=== PATIENT | male | born 1990 | race Caucasian/White ===

== ENCOUNTER 2021-06-18 18:38 | Emergency (ER) | payer OTHER ==
[~2021-06-18] VITALS: Ht 167.6 cm; Wt 90.7 kg
--- NOTE | ~2021-06-18 | EMS ---
[facility] [address] [place] [address] EMS Patient Care Report Name: ENOCH RILEY Room #: REG TONA Laughlin#: [id number] Admission: 06/18/21 Attend Phys: Discharge: Date of : 88 Report #: [id number] THIS REPORT FOR: //name// Report Transmitted: 06/18/2021 19:37 EMS Care Summary [place], [place]/[facility] Incident [id number] @ 06/18/2021 17:57 Incident Location [address] [place] [address] Patient ENOCH RONDON Male, 40 Years 1980-10-09 Patient Address [address] [place] [address] Chief Complaint CHEST PAIN Disposition Transported No Lights/Russell Dispatch Reason Unknown Problem/Person Down Transported To [facility] Narrative M41 WAS DISPATCHED FOR AN UNKNOWN PROBLEM. UPON ARRIVAL THE PT FRIENDS WERE IN FRONT OF THE HOUSE TALKING TO PD. PT FRIENDS INFORMED PD AND EMS THAT THE PT HAD BEEN DRINKING FOR THE PAST WEEK AND HAD NOT BEEN EATING "ALMOST NO FOOD" THE PT WAS [place] ISLANDER SPEAKING ONLY AND HIS FRIENDS WERE PRIMARILY [place]LANDER SPEAKING. THE PT CAME OUT OF THE HOUSE WHILE EMS WAS SPEAKING TO HIS FRIENDS AND HE WALKED DIRECTLY TO THE AMBULANCE WILE CLUTCHING HIS CHEST. EMS WENT TO THE AMBULANCE WITH HIM AND PUT HIM ON THE END TRIMMER. THE PT ALLUDED TO HAVING CHEST PAIN AND INITIAL RHYTHM APPEARED TO BE SVT. AT THAT TIME THE PT THREW HIS HEAD BACK AND HIS EYES GOT WIDE AND HE BEGAN TO SHAKE FOR ABOUT FIVE SECONDS. THE PT THEN SUDDENLY SAT UP AND AND TRIED TO GET OFF THE STRETCHER. EMS CONVINCED HIM TO REMAIN SEATED, AT WHICH TIME HE SUDDENLY BECAME VERY CALM. [facility] [address] [place] [address] EMS Patient Care Report Name: ENOCH RILEY Room #: REG TONA Laughlin#: [id number] Admission: 06/18/21 Attend Phys: Discharge: Date of : 88 Report #: [id number] THE PT HEART RATE SIGNIFICANTLY LOWERED. THE PT WAS THEN TRANSPORTED TO THE HOSPITAL AND MONITORED ENROUTE. THE PT WAS TRANSFERRED TO HOSPITAL STAFF WITH A REPORT. EMS RETURNED TO SERVICE. Initial Vitals @18:10P: 160,R: 20,BP: 136/68,Pain: 6/10,GCS: 15,Glucose: 106,SpO2: 98,Revised Trauma: 12,[place] Suspected: false @18:15P: 124,R: 16,BP: 140/88,Pain: 6/10,GCS: 15,SpO2: 99,Revised Trauma: 12,[place] Suspected: false @18:25P: 94,R: 16,BP: 124/88,Pain: 2/10,GCS: 15,SpO2: 99,Revised Trauma: 12,[place] Suspected: false Assessments @18:06MENTAL:SKIN:HEENT:Head/Face: No Abnormalities,Neck/Airway: No Abnormalities,LUNG SOUNDS:General: No Abnormalities,Left Upper: No Abnormalities,Right Upper: No Abnormalities,Left Lower: No Abnormalities,Right Lower: No Abnormalities,ABDOMEN:General: No Abnormalities,Left Upper: No Abnormalities,Right Upper: No Abnormalities,Left Lower: No Abnormalities,Right Lower: No Abnormalities,PELVIS//GI:No Abnormalities,EXTREMITIES:Left Arm: No Abnormalities,Right Arm: No Abnormalities,Left Leg: No Abnormalities,Right Leg: No Abnormalities,PULSE:Radial: 2+ Normal,NEURO:No Abnormalities, Impression Chest Pain / Discomfort Procedures @18:06 ALS Assessment Response: UnchangedSucceeded @18:12 IV Therapy - Saline Lock 10cc (18 ga) Site: Antecubital-Left Response: UnchangedSucceeded @18:10 3-Lead ECG Response: UnchangedSucceeded @18:15 12-Lead ECG Response: UnchangedSucceeded Timeline 17:56,Call Received 17:56,Dispatch Notified 17:57,Dispatched 17:57,En Route 18:05,On Scene 18:06,At Patient 18:06,ALS Assessment,Response: UnchangedSucceeded, 18:10,3-Lead ECG,Response: UnchangedSucceeded, 18:10,BP: 136/68 M,PULSE: 160,RR: 20 R,SPO2: 98 Ox,ETCO2: ,B,PAIN: 6,GCS: 15, 18:12,IV Therapy - Saline Lock 10cc 18 ga Site: Antecubital-Left,Response: UnchangedSucceeded, [facility] [address] [place] [address] EMS Patient Care Report Name: ENOCH RILEY Room #: ROSALIND Laughlin#: [id number] Admission: 06/18/21 Attend Phys: Discharge: Date of : 88 Report #: [id number] 18:15,12-Lead ECG,Response: UnchangedSucceeded, 18:15,BP: 140/88 M,PULSE: 124,RR: 16 R,SPO2: 99 Ox,ETCO2: ,BG: ,PAIN: 6,GCS: 15, 18:20,Depart Scene 18:25,BP: 124/88 M,PULSE: 94,RR: 16 R,SPO2: 99 Ox,ETCO2: ,BG: ,PAIN: 2,GCS: 15, 18:48,At Destination 18:49,Call Closed Disclaimer v1.1 Copyright 2021 [employer] This EMS Care Summary contains data elements from the applicable legal record (which may be displayed differently). It is designed to provide pertinent information for the following purposes: continuity of care, clinical quality, and state data reporting. The complete legal record is available to ED staff and administrators of the receiving hospital in [employer] Patient Tracker. All data is provided "as is."
--- NOTE | ~2021-06-18 | EMS ---
[facility] [address] [place] [address] EMS Patient Care Report Name: ENOCH RILEY Room #: DEP TONA Laughlin#: [id number] Admission: 06/18/21 Attend Phys: Discharge: 06/18/21 Date of : 88 Report #: [id number] THIS REPORT FOR: //name// Report Transmitted: 06/18/2021 20:40 EMS Care Summary [place], [place]/[facility] Incident [id number] @ 06/18/2021 17:57 Incident Location [address] [place] [address] Patient ENOCH RONDON Male, 40 Years 1980-10-09 Patient Address [address] [place] [address] Chief Complaint CHEST PAIN Disposition Transported No Lights/Coleman Dispatch Reason Unknown Problem/Person Down Transported To [facility] Narrative M41 WAS DISPATCHED FOR AN UNKNOWN PROBLEM. UPON ARRIVAL THE PT FRIENDS WERE IN FRONT OF THE HOUSE TALKING TO PD. PT FRIENDS INFORMED PD AND EMS THAT THE PT HAD BEEN DRINKING FOR THE PAST WEEK AND HAD NOT BEEN EATING "ALMOST NO FOOD" THE PT WAS HONDURAN SPEAKING ONLY AND HIS FRIENDS WERE PRIMARILY HONDURAN SPEAKING. THE PT CAME OUT OF THE HOUSE WHILE EMS WAS SPEAKING TO HIS FRIENDS AND HE WALKED DIRECTLY TO THE AMBULANCE WILE CLUTCHING HIS CHEST. EMS WENT TO THE AMBULANCE WITH HIM AND PUT HIM ON THE LEAD DESIGNER. THE PT ALLUDED TO HAVING CHEST PAIN AND INITIAL RHYTHM APPEARED TO BE SVT. AT THAT TIME THE PT THREW HIS HEAD BACK AND HIS EYES GOT WIDE AND HE BEGAN TO SHAKE FOR ABOUT FIVE SECONDS. THE PT THEN SUDDENLY SAT UP AND AND TRIED TO GET OFF THE STRETCHER. EMS CONVINCED HIM TO REMAIN SEATED, AT WHICH TIME HE SUDDENLY BECAME VERY CALM. [facility] [address] [place] [address] EMS Patient Care Report Name: ENOCH RILEY Room #: DEP Truman#: [id number] Admission: 06/18/21 Attend Phys: Discharge: 06/18/21 Date of : 88 Report #: [id number] THE PT HEART RATE SIGNIFICANTLY LOWERED. THE PT WAS THEN TRANSPORTED TO THE HOSPITAL AND MONITORED ENROUTE. THE PT WAS TRANSFERRED TO HOSPITAL STAFF WITH A REPORT. EMS RETURNED TO SERVICE. Initial Vitals @18:10P: 160,R: 20,BP: 136/68,Pain: 6/10,GCS: 15,Glucose: 106,SpO2: 98,Revised Trauma: 12,[place] Suspected: false @18:15P: 124,R: 16,BP: 140/88,Pain: 6/10,GCS: 15,SpO2: 99,Revised Trauma: 12,[place] Suspected: false @18:25P: 94,R: 16,BP: 124/88,Pain: 2/10,GCS: 15,SpO2: 99,Revised Trauma: 12,NM Suspected: false Assessments @18:06MENTAL:SKIN:HEENT:Head/Face: No Abnormalities,Neck/Airway: No Abnormalities,LUNG SOUNDS:General: No Abnormalities,Left Upper: No Abnormalities,Right Upper: No Abnormalities,Left Lower: No Abnormalities,Right Lower: No Abnormalities,ABDOMEN:General: No Abnormalities,Left Upper: No Abnormalities,Right Upper: No Abnormalities,Left Lower: No Abnormalities,Right Lower: No Abnormalities,PELVIS//GI:No Abnormalities,EXTREMITIES:Left Arm: No Abnormalities,Right Arm: No Abnormalities,Left Leg: No Abnormalities,Right Leg: No Abnormalities,PULSE:Radial: 2+ Normal,NEURO:No Abnormalities, Impression Chest Pain / Discomfort Procedures @18:06 ALS Assessment Response: UnchangedSucceeded @18:12 IV Therapy - Saline Lock 10cc (18 ga) Site: Antecubital-Left Response: UnchangedSucceeded @18:10 3-Lead ECG Response: UnchangedSucceeded @18:15 12-Lead ECG Response: UnchangedSucceeded Timeline 17:56,Call Received 17:56,Dispatch Notified 17:57,Dispatched 17:57,En Route 18:05,On Scene 18:06,At Patient 18:06,ALS Assessment,Response: UnchangedSucceeded, 18:10,3-Lead ECG,Response: UnchangedSucceeded, 18:10,BP: 136/68 M,PULSE: 160,RR: 20 R,SPO2: 98 Ox,ETCO2: ,B,PAIN: 6,GCS: 15, 18:12,IV Therapy - Saline Lock 10cc 18 ga Site: Antecubital-Left,Response: UnchangedSucceeded, [facility] [address] [facility] [place] [address] EMS Patient Care Report Name: ENOCH RILEY Room #: DEP TONA Laughlin#: [id number] Admission: 06/18/21 Attend Phys: Discharge: 06/18/21 Date of : 88 Report #: [id number] 18:15,12-Lead ECG,Response: UnchangedSucceeded, 18:15,BP: 140/88 M,PULSE: 124,RR: 16 R,SPO2: 99 Ox,ETCO2: ,BG: ,PAIN: 6,GCS: 15, 18:20,Depart Scene 18:25,BP: 124/88 M,PULSE: 94,RR: 16 R,SPO2: 99 Ox,ETCO2: ,BG: ,PAIN: 2,GCS: 15, 18:48,At Destination 18:49,Call Closed Disclaimer v1.1 Copyright 2021 [employer] This EMS Care Summary contains data elements from the applicable legal record (which may be displayed differently). It is designed to provide pertinent information for the following purposes: continuity of care, clinical quality, and state data reporting. The complete legal record is available to ED staff and administrators of the receiving hospital in [employer] Patient Tracker. All data is provided "as is."
[2021-06-18 18:56] LABS: ABSOLUTE NEUTROPHILS 5.2 thou/uL (1.4-8.2); BASOPHILS 0.7 % (0.0-2.0); HEMATOCRIT 38.9 % (42.0-52.0); HEMOGLOBIN 13.4 gm/dL (14.0-18.0); LYMPHOCYTES 31.3 % (24.0-44.0); MCH 32.8 pg (26.0-34.0); MCHC 34.3 g/dL (28.0-37.0); MCV 95.5 fL (80.0-100.0); PLATELET COUNT 186 thou/uL (150-400); RBC 4.08 mil/uL (4.50-6.00); RDW 13.1 % (10.5-14.5); WBC 8.8 thou/uL (4.0-11.0)
[2021-06-18 19:08] LABS: CALCIUM 8.7 mg/dL (8.5-10.1); POTASSIUM 3.8 mmol/L (3.5-5.1)
[2021-06-18 19:19] LABS: ALBUMIN 3.6 g/dL (3.4-5.0); MAGNESIUM 1.9 mg/dL (1.8-2.4); TOTAL BILIRUBIN 0.3 mg/dL (0.2-1.0); TOTAL PROTEIN 7.7 g/dL (6.4-8.2)
[2021-06-18 19:47] LABS: URINE BILIRUBIN NEGATIVE (Negative); URINE BLOOD NEGATIVE (Negative); URINE CLARITY CLEAR; URINE COLOR YELLOW; URINE GLUCOSE-RANDOM* NEGATIVE (Negative); URINE KETONES NEGATIVE (Negative); URINE LEUKOCYTES-REFLEX NEGATIVE (Negative); URINE NITRITE-REFLEX NEGATIVE (Negative); URINE PROTEIN (DIPSTICK) NEGATIVE (Negative); URINE UROBILINOGEN 0.2 E.U./dl (0.2-1.0)
[2021-06-18 19:56] LABS: AMP/METHAMP Negative (Negative); BARBITURATES Negative (Negative); BENZODIAZEPINES Negative (Negative); COCAINE Negative (Negative); METHADONE Negative (Negative); OPIATES Negative (Negative); PCP Negative (Negative)
[2021-06-18 20:35] VITALS: BP 138/81
--- NOTE | 2021-06-19 08:10 | EKG ---
[place] [address] [address] [address] ELECTROCARDIOGRAM REPORT Name: ENOCH RILEY Room #: [facility] TONA Laughlin#: [id number] Admission: 06/18/21 Attend Phys: Discharge: 06/18/21 Date of : 88 Report #: [id number] [facility] ED Test Date: 2021-06-18 Test Time: 18:41:27 Pat Name: ENOCH RILEY Department: Room: Gender: Senior Web Services Developer: BRITTANY : 1990 Requested By: Cortney Vásquez Order Number: [id number] MD: Corbin Layton Measurements Intervals [place] Rate: 86 P: 52 [place]: 145 QRS: 54 QRSD: 95 T: 21 QT: 376 QTc: 450 Interpretive Statements Sinus rhythm Probable left atrial enlargement No previous ECG available for comparison Electronically Signed On 06-19-2021 8:10:14 NUCLEAR SECURITY OFFICER by Corbni Layton [email or web address] <ELECTRONICALLY SIGNED> By: Corbin Layton MD, [facility] 06/19/21 0810 [id number] [id number] Corbin Layton MD, FACC /EPI
== END 2021-06-18 20:45 | disposition home or self-care (01) ==
LOC: ER 18:38
PROVIDERS: Physician Assistant
DX: R07.89 Other chest pain (principal); F10.129 Alcohol abuse with intoxication, unspecified